=== PATIENT | male | born 1955 | race Caucasian/White ===

== ENCOUNTER 2019-01-21 06:48 | Day surgery (SDC) | payer MEDICAID ==
[~2019-01-21] VITALS: Ht 157.5 cm; Wt 64.5 kg
[~2019-01-21 06:48] MED LIST: SODIUM CHLORIDE 0.9% 1,000 ML IV ONE
[2019-01-21] MEDS ORDERED: BENZOCAINE 20% 50 MCG/SPRAY 57 GM TP ONE (06:49)
[2019-01-21] MEDS ORDERED: ALBUTEROL SULFATE 2.5 MG/0.5 ML NEB SOLUTION NEB ONE (06:49)
[2019-01-21] MEDS ORDERED: LIDOCAINE 4% 50 ML SOLUTION TP ONE (06:49)
[2019-01-21] MEDS ORDERED: LIDOCAINE 2% 30 ML JELLY TP ONE (06:49)
[2019-01-21] MEDS ORDERED: MethylPREDNISolone SOD SUCC 125 MG/2 ML VIAL IVP ONE (09:15)
[2019-01-21] MEDS ORDERED: MethylPREDNISolone SOD SUCC 125 MG/2 ML VIAL ONE (09:20)
[2019-01-21] MEDS ORDERED: FentaNYL CITRATE-PF 100 MCG/2 ML VIAL ONE (09:37)
[2019-01-21] MEDS ORDERED: MIDAZOLAM HCL 2 MG/2 ML VIAL ONE (09:37)
[2019-01-21] MEDS ORDERED: OXYGEN THERAPY IH SCH (20:00)
== END 2019-01-21 11:00 | disposition home or self-care (01) ==
LOC: SURGERY 06:48
PROVIDERS: ATTEND Internal Medicine Critical Care Medicine
DX: J38.4 Edema of larynx (principal); B37.0 Candidal stomatitis; Z88.2 Allergy status to sulfonamides; Z86.19 Personal history of other infectious and parasitic diseases
CPT/HCPCS: 31623; 31624; 71045; 87015; 87070; 87101; 87205; 87206; 87220; 88108; 88312; J2250; J2930; J3010; J7030